=== PATIENT | female | born 1955 | race Caucasian/White ===

== ENCOUNTER → 2021-07-28 | Outpatient (CLI) | payer OTHER ==
[~2021-07-28] MED LIST: ACTOS30 MG PO; COLACE 100MG C100 MG PO; DIOVAN40 MG PO; GABAPENTIN300 MG PO; GLUCOPHAGE1000 MG PO; IBUPROFEN800 MG PO; MICROZIDE12.5 MG PO; NORCO 7.5-3251 EACH PO; TOPROL XL25 MG PO; XALATAN OP SOL2.5 ML OU
== END ==
LOC: HEART 5 09:08
DX: I10 Essential (primary) hypertension (principal); R07.9 Chest pain, unspecified; R42 Dizziness and giddiness; R00.2 Palpitations; R06.02 Shortness of breath
CPT/HCPCS: 78452; A9502; J2785

== ENCOUNTER → 2021-09-11 | Outpatient (CLI) | payer OTHER ==
[2021-09-11 12:38] LABS: HEMOGLOBIN 13.3 gm/dl (12.3-15.3); RED BLOOD COUNT 4.11 M/UL (4.00-5.10); WHITE BLOOD COUNT 5.2 K/UL (4.5-11.0)
[2021-09-11 13:09] LABS: BUN/CREATININE RATIO 19 (0-10)
== END ==
LOC: LAB 11:51
PROVIDERS: Internal Medicine Interventional Cardiology
DX: Z01.818 Encounter for other preprocedural examination (principal); R42 Dizziness and giddiness; R51.9 Headache, unspecified; I10 Essential (primary) hypertension; E11.9 Type 2 diabetes mellitus without complications; E53.9 Vitamin B deficiency, unspecified; E55.9 Vitamin D deficiency, unspecified; R06.02 Shortness of breath; R00.2 Palpitations; R94.31 Abnormal electrocardiogram [ECG] [EKG]
CPT/HCPCS: 36415; 80048; 85025; 85610; 85730; 93005

== ENCOUNTER → 2021-09-19 | Outpatient (CLI) | payer OTHER ==
[~2021-09-19] MED LIST changes: +CELEBREX100 MG PO; +COSAMIN DS CAP1 EACH PO; +GABAPENTIN100 MG PO; +ISOSORBIDE MONO30 MG PO; +TIMOPTIC5 ML OP; +TYLENOL EXTRA500 MG PO
== END ==
LOC: CATH 07:03
DX: I25.118 Atherosclerotic heart disease of native coronary artery with other forms of angina pectoris (principal); R42 Dizziness and giddiness; I10 Essential (primary) hypertension; R00.2 Palpitations; E11.9 Type 2 diabetes mellitus without complications; Z88.1 Allergy status to other antibiotic agents; Z88.0 Allergy status to penicillin; Z88.2 Allergy status to sulfonamides
CPT/HCPCS: 82962; 93571; 99152; 99153; C1769; C1887; C1894; J0153; J0461; J1644; J2250; J3010; Q9967

== ENCOUNTER → 2021-10-08 | Outpatient (CLI) | payer OTHER | LOC: KOH-I 11:54 | DX: M25.551 Pain in right hip (principal); M54.50 Low back pain, unspecified | CPT/HCPCS: 72100; 72220; 73502 ==